=== PATIENT | female | born 1995 | race Caucasian/White ===

== ENCOUNTER 2019-09-16 20:19 | Emergency (ER) | payer MEDICAID ==
[~2019-09-16] VITALS: Ht 167.6 cm; Wt 59.0 kg
--- NOTE | 2019-09-16 20:24 | NUR ---
Patient ambualted with stable gait. A/Ox4. Patient came for c/o RFA abscess after using IV heroin. Patient reports putting potatoes on it, and vicks, but the abscess has increased in size significantly within the past 2 days. Surrounding tissuue in the area has redness and inflammation noted. Denies any fever, malaise, cp, palpitations, or any n/v/d. Patient in bed at lowest position, sr upx2, call light within reach. Fall precautions implemented per protocol.
[2019-09-16] MEDS ORDERED: CLINDAMYCIN HCL 300 MG CAPSULE ONE (20:36)
[2019-09-16] MEDS ORDERED: CLINDAMYCIN HCL 150 MG CAPSULE ONE (20:36)
[2019-09-16] MEDS ORDERED: LIDOCAINE 1%-EPI 1:100,000 20 ML VIAL TP ONE ×2 (20:45→21:00)
[2019-09-16] MEDS ORDERED: CLINDAMYCIN HCL 150 MG CAPSULE PO ONE (20:45)
[2019-09-16] MEDS ORDERED: IBUPROFEN 600 MG TABLET ONE (20:54)
[2019-09-16] MEDS ORDERED: IBUPROFEN 600 MG TABLET PO ONE (21:00)
--- NOTE | 2019-09-16 21:20 | NUR ---
Patient discharged to home in stable condition. Written and verbal after care instructions given. Patient verbalizes understanding of instructions. Stressed follow up or return to ER for worsening s/s.
[2019-09-16 21:21] VITALS: BP 113/69
== END 2019-09-16 21:27 | disposition home or self-care (01) ==
LOC: EDBD 20:22 → ER 20:22
DX: L02.413 Cutaneous abscess of right upper limb (principal); S51.832S Puncture wound without foreign body of left forearm, sequela; X78.8XXS Intentional self-harm by other sharp object, sequela
CPT/HCPCS: 10060; 73090; 99283; J3490; A4217; A4663

== ENCOUNTER 2019-09-19 19:01 | Emergency (ER) | payer MEDICAID ==
[~2019-09-19] VITALS: Ht 165.1 cm; Wt 59.0 kg
[2019-09-19] MEDS ORDERED: [UNRECOGNIZED DRUG - REMARK] (19:18)
--- NOTE | 2019-09-19 19:25 | NUR ---
dr henao saw the patient at the bedside , wound at the right arm was moist with normal saline
[2019-09-19] MEDS ORDERED: HYDROCODONE/APAP 10-325 MG TABLET ONE (19:27)
[2019-09-19] MEDS ORDERED: HYDROCODONE/APAP 10-325 MG TABLET PO ONE (19:30)
--- NOTE | 2019-09-19 19:45 | NUR ---
wound site was soaked and dr henao pulled out the packing , no bleeding , no pus noted
--- NOTE | 2019-09-19 19:56 | NUR ---
wound site was cleansed and pat dry and covered with xeroform and non adhesive dressing , instructins on sings and symptoms to look for and to report , redness , increasing pain , and numbeness , verbalizes understanding
[2019-09-19 19:59] VITALS: BP 122/79
== END 2019-09-19 20:00 | disposition home or self-care (01) ==
LOC: ER 19:03
DX: Z48.817 Encounter for surgical aftercare following surgery on the skin and subcutaneous tissue (principal); L02.413 Cutaneous abscess of right upper limb
CPT/HCPCS: A4663